=== PATIENT | female | born 1935 | race Caucasian/White ===

== ENCOUNTER 2019-08-18 10:15 | Emergency (ER) | payer OTHER ==
--- NOTE | 2019-08-18 14:02 | RAD ---
PORTABLE CHEST: 08/18/19 PROVIDED CLINICAL HISTORY: Cough and sore throat. FINDINGS: No comparisons. Heart size is prominent likely at least partially on the basis of portable technique. Moderate hiatal hernia. No focal consolidation, pleural fluid or pneumothorax apparent. IMPRESSION: No evidence for an acute cardiopulmonary process. POS: GEN
[2019-08-19 12:23] LABS: SARS-CoV-2 MS2 Positive; SARS-CoV-2 N Gene Positive; SARS-CoV-2 S Gene Positive; SARS-CoV-2 orf1ab Positive
== END 2019-08-18 15:25 | disposition home or self-care (01) ==
LOC: ERS 10:15
DX: U07.1 COVID-19 (principal); I10 Essential (primary) hypertension
CPT/HCPCS: 71045; 87635; 99283; U0003